=== PATIENT | male | born 2000 | race Caucasian/White ===

== ENCOUNTER 2022-06-27 16:35 | Emergency (ER) | payer OTHER, SELFPAY ==
--- NOTE | 2022-06-27 17:03 | ECG_ITS ---
APPROVED REPORT Exam: Resting ECG HR:105 bpm ECG Measurements Heart Rate 105 AXES TN 150 P 143 QRSd 100 QRS 126 QT 316 T 151 QTc 377 Conclusion SINUS TACHYCARDIA LEFT POSTERIOR FASCICULAR BLOCK [QRS AXIS > 109, INFERIOR Q] ABNORMAL ECG UNCONFIRMED REPORT Electronically signed by : Rashel Reddy MD 06/28/2022 20:49:24
--- NOTE | 2022-06-27 18:05 | XR_ITS ---
PROCEDURE INFORMATION: Exam: XR Chest Exam date and time: 06/27/2022 6:19 PM Age: 22 years old Clinical indication: Shortness of breath; Additional info: Pre-syncope TECHNIQUE: Imaging protocol: Radiologic exam of the chest. Views: 1 view. COMPARISON: No relevant prior studies available. FINDINGS: Lungs: Unremarkable. No consolidation. Pleural spaces: Unremarkable. No pleural effusion. No pneumothorax. Heart/Mediastinum: Unremarkable. No cardiomegaly. Bones/joints: Unremarkable. IMPRESSION: No acute findings.
--- NOTE | 2022-06-27 18:07 | [facility].EDGENADL ---
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 Onset was acute, occurring over the past few days, patient is lightheaded when rising from a seated position. Patient has had an associated nonproductive cough. Denies trauma. No other acute complaints at this time. Related Data Allergies Allergy/AdvReac Type Severity Reaction Status Date / Time No Known Allergies Allergy Verified 06/27/22 18:21 PFSH PFSH Social History Smoking Status: Never smoker alcohol intake: never current occupational status: employed Travel in the last 8 weeks: None ROS Obtained: Yes Systems reviewed as appropriate & no additional complaints except as documented Physical Exam General General appearance: alert and in no apparent distress Head Head exam: atraumatic and normocephalic Eye Eye exam: Present PERRL and EOMI ENT ENT exam: Present mucous membranes moist Neck Neck exam: Present normal inspection Chest Chest inspection: Present normal inspection and symmetric chest wall rise Respiratory Respiratory exam: Present normal lung sounds bilaterally; Absent respiratory distress Cardiovascular Cardiovascular exam: Present normal rhythm and tachycardia Abdominal Exam Abdominal exam: Present soft; Absent tenderness Extremities Exam Extremities exam: Present normal inspection Neurological Exam Neurological exam: Present alert, oriented X3 and CN II-XII intact Psychiatric Psychiatric exam: Present normal affect Skin Skin exam: Present warm and dry Medical Decision Making Sreekanth Inquiry Pt receiving controlled substance: No Vital Signs: 06/27/22 18:12 Temperature 98.3 F Temperature Source Oral Pulse Rate [Left Radial] 93 H Respiratory Rate 20 Blood Pressure [Right Arm] 117/61 Blood Pressure Mean [Right Arm] 79 02 Sat by Pulse Oximetry 94 L Lab Data Lab Results 06/27/22 19:07: WBC 6.6, RBC 5.32, Hgb 14.7, Hct 43.6, MCV 81.9, MCH 27.6, MCHC 33.7, RDW 13.0, Plt Count 305, MPV 8.4, Neut % (Auto) 78.4, Lymph % (Auto) 10.7, [place] % (Auto) 6.7, Eos % (Auto) 3.5, Baso % (Auto) 0.7, Neut # (Auto) 5.2, Lymph # (Auto) 0.7, [place] # (Auto) 0.4, Eos # (Auto) 0.2, Baso # (Auto) 0.0 06/27/22 19:07: D-Dimer 0.44 06/27/22 19:07: Sodium 139, Potassium 4.0, Chloride 100, Carbon Dioxide 29, Anion Gap 14.0, BUN 15, Creatinine 0.90, Estimated Creat Clear 151, Estimated GFR 108, Est GFR ( Amer) 130, Glucose 111 H, Calcium 9.4, Total Bilirubin 0.2, AST 34, ALT 39, Alkaline Phosphatase 76, Total Protein 6.6, Albumin 4.2, Globulin 2.4, Albumin/Globulin Ratio 1.8 06/27/22 19:07: SARS-CoV-2 (PCR) Not detected, Influenza A Untype (PCR) Not detected, Influenza Type B (PCR) Not detected Result diagrams: 06/27/22 19:07 06/27/22 19:07 Orders (Tests/Meds): ED MEDICATIONS Discontinued Medications Generic Name Dose Route Start Last Admin Trade Name Freq PRN Reason Stop Dose Admin Lactated Ringer's 1,000 mls @ 999 mls/hr 06/27/22 18:15 06/27/22 18:37 Lactated Ringer's 1000 Ml Bag IV 06/27/22 19:15 999 mls/hr .[id number] JOSE Administration ORDERS Category Date Time Status XR chest portable Stat Exams 06/27/22 18:05 Completed Complete Blood Count Auto Diff Stat Lab 06/27/22 19:07 Completed Comprehensive Metabolic Panel Stat Lab 06/27/22 19:07 Completed D-Dimer Stat Lab 06/27/22 19:0
[2022-06-27 18:12] VITALS: BP 117/61; PULSE 93; RESP 20; TEMP 36.8; O2SAT 94; BMI 27.3
--- NOTE | 2022-06-27 18:35 | PC.NURSE ---
Dr Baltazar paged.
[2022-06-27 19:15] LABS: Basophils % 0.7 % (0.1-2.0); Coronavirus 19, PCR Not Detected (NotDetected); Eosinophils # 0.2 K/mm3 (0.0-0.4); Eosinophils % 3.5 % (0.1-12.0); Hematocrit 43.6 % (42.0-52.0); Hemoglobin 14.7 g/dL (14.1-18.0); Influenza A, PCR Not Detected (NotDetected); Influenza B, PCR Not Detected (NotDetected); Lymphocytes # 0.7 K/mm3 (0.7-4.5); Lymphocytes % 10.7 % (10-50); Mean Corpuscular HGB Conc 33.7 g/dL (31.8-35.4); Mean Corpuscular Hemoglobin 27.6 pg (27.0-31.2); Mean Corpuscular Volume 81.9 fl (80-94); Mean Platelet Volume 8.4 fl (7.4-10.4); Monocytes # 0.4 K/mm3 (0.1-1.0); Monocytes % 6.7 % (1.7-9.3); Neutrophils # 5.2 K/mm3 (1.8-7.8); Neutrophils % 78.4 % (37.0-80.0); Platelet Count 305 K/mm3 (142-424); Red Blood Count 5.32 M/mm3 (4.60-6.20); White Blood Count 6.6 K/mm3 (4.5-13.0)
[2022-06-27 19:27] LABS: Alanine Aminotransferase 39 U/L (12-78); Albumin Level 4.2 g/dl (3.5-5.0); Albumin/Globulin Ratio 1.8 (1.1-1.8); Alkaline Phosphatase 76 U/L (38-126); Aspartate Amino Transferase 34 U/L (17-59); Bilirubin,Total 0.2 mg/dl (0.2-1.3); Blood Urea Nitrogen 15 mg/dl (9-20); Calcium 9.4 mg/dl (8.4-10.2); Carbon Dioxide 29 mmol/L (22.0-30.0); Chloride 100 mmol/L (98-107); Creatinine Clearance Estimated 151 mL/min (50-200); Estimated Glomerular Filt Rate 108 ml/min (>60); GFR (African American) 130 ML/MIN (>60); Globulin 2.4 g/dL (1.3-3.2); Glucose 111 mg/dl (74-100); Sodium 139 mmol/L (136-145); Total Protein,Serum 6.6 g/dl (6.3-8.2)
[2022-06-27 19:32] LABS: D-Dimer 0.44 ug/mL (0.0-0.5)
[2022-06-27 20:49] VITALS: BP 120/65; PULSE 92; RESP 18; TEMP 36.6; O2SAT 99
== END 2022-06-27 20:56 | disposition home or self-care (01) ==
PROVIDERS: Emergency Provider Emergency Medicine
DX: R55 Syncope and collapse (principal); G40.409 Other generalized epilepsy and epileptic syndromes, not intractable, without status epilepticus; I10 Essential (primary) hypertension
CPT/HCPCS: 71045; 80053; 85025; 85378; 93005; 96365; 99285; C9803; U0003; U0005

== ENCOUNTER 2022-07-05 21:48 | Emergency (ER) | payer OTHER, SELFPAY ==
[2022-07-05 23:27] VITALS: BP 0/0; PULSE 0; RESP 0; TEMP -17.7; TEMP 0; O2SAT 0
== END 2022-07-05 23:32 | disposition left against medical advice (07) ==
LOC: ER 23:30
PROVIDERS: Emergency Provider Emergency Medicine
DX: S69.92XA Unspecified injury of left wrist, hand and finger(s), initial encounter (principal); Z53.21 Procedure and treatment not carried out due to patient leaving prior to being seen by health care provider
CPT/HCPCS: 99211